=== PATIENT | male | born 1985 | race Caucasian/White ===

== ENCOUNTER 2017-02-24 06:56 | Emergency (ER) | payer SELFPAY ==
--- NOTE | 2017-02-24 07:30 | EDM.PDOC ---
ED HPI GENERAL MEDICAL PROBLEM - General Stated Complaint: HURT LEFT ANKLE Time Seen by Provider: 02/24/17 07:13 Source of Information: Reports: Patient History Limitations: Reports: No Limitations - History of Present Illness INITIAL COMMENTS - FREE TEXT/NARRATIVE: History of present illness: Patient has bad knees and tripped yesterday rolling his left ankle. He presents with left lateral ankle pain and swelling and numbness and tingling to the foot. Review of systems: As per history of present illness and below otherwise all systems reviewed and negative. Past medical history: As per history of present illness and as reviewed below otherwise noncontributory. Surgical history: As per history of present illness and as reviewed below otherwise noncontributory. Social history: No reported history of drug or alcohol abuse. Family history: As per history of present illness and as reviewed below otherwise noncontributory. Physical exam: General: Well developed, well nourished in NAD HEENT: Atraumatic, normocephalic, pupils reactive, negative for conjunctival pallor or scleral icterus, mucous membranes moist, throat clear, neck supple, nontender, trachea midline. Lungs: Clear to auscultation, breath sounds equal bilaterally, chest nontender. Heart: S1S2, regular, negative for clicks, rubs, or JVD. Abdomen: Soft, nondistended, nontender. Negative for masses or hepatosplenomegaly. Negative for costovertebral tenderness. Pelvis: Stable nontender. Genitourinary: Deferred. Rectal: Deferred. Extremities: Tender over lateral malleolus with swelling there is no open lesions, moves toes and has pedis palpable capillary refill is brisk. Sensation is intact., negative for cords or calf pain. Neurovascular unremarkable. Neuro: Awake, alert, oriented. Cranial nerves II through XII unremarkable. Cerebellum unremarkable. Motor and sensory unremarkable throughout. Exam nonfocal. Diagnostics: []X-ray left ankle Therapeutics: [] Impression: [] Plan: [] Definitive disposition and diagnosis as appropriate pending reevaluation and review of above. Left Ankle Pain Score (Numeric/FACES): 5 - Related Data Allergies Allergy/AdvReac Type Severity Reaction Status Date / Time Penicillins Allergy Hives Verified 02/24/17 07:24 Home Meds: Home Meds . [No Known Home Meds] 01/09/18 [History] Review of Systems - Review of Systems Review Of Systems: See Below (See history of present illness) ED EXAM, GENERAL - Physical Exam Exam: See Below (See history of present illness) Course - Vital Signs Last Recorded V/S: Last Vital Signs Temp 98.7 F 02/24/17 07:20 Pulse 88 02/24/17 07:20 Resp 18 02/24/17 07:20 BP 136/81 02/24/17 07:20 Pulse Ox 97 02/24/17 07:20 - Orders/Labs/Meds Orders: Active Orders 24 hr Category Date Time Status Splinting [RC] ASDIRECTED Care 02/24/17 08:20 Active Ankle Min 3V Lt [CR] Stat Exams 02/24/17 07:03 Taken Meds: Medications Discontinued Medications Generic Name Dose Route Start Last Admin Trade Name Freq PRN Reason Stop Dose Admin Ibuprofen 800 mg 02/24/17 07:32 02/24/17 07:36 Motrin PO 02/24/17 07:33 800 mg ONETIME ONE Administration Departure - Departure Time of Disposition: 08:33 Disposition: Home, Self-Care 01 Condition: Good Clinical Impression: Left ankle sprain Qualifiers: Encounter type: initial encounter Involved ligament of ankle: unspecified ligament Qualified Code(s): S93.402A - Sprain of unspecified ligament of left ankle, initial encounter - Discharge Information Referrals: PCP,None [Primary Care Provider] - Additional Instructions: The following information is given to patients seen in the emergency department who are being discharged to home. This information is to outline your options for follow-up care. We provide all patients seen in our emergency department with a follow-up referral. The need for follow-up, as well as the timing and circumstances, are variable depending upon the specifics of your emergency department visit. If you don't have a primary care physician on staff, we will provide you with a referral. We always advise you to contact your personal physician following an emergency department visit to inform them of the circumstance of the visit and for follow-up with them and/or the need for any referrals to a consulting specialist. The emergency department will also refer you to a specialist when appropriate. This referral assures that you have the opportunity for follow-up care with a specialist. All of these measure are taken in an effort to provide you with optimal care, which includes your follow-up. Under all circumstances we always encourage you to contact your private physician who remains a resource for coordinating your care. When calling for follow-up care, please make the office aware that this follow-up is from your recent emergency room visit. If for any reason you are refused follow-up, please contact the [facility] Emergency Department at and asked to speak to the emergency department charge nurse. Ice, elevate, ibuprofen for pain follow-up with primary care as needed, return if symptoms worsen or change [facility] [address] [place] [id number] - My Orders Last 24 Hours: My Active Orders 02/24/17 07:03 Ankle Min 3V Lt [CR] Stat 02/24/17 08:20 Splinting [RC] ASDIRECTED - Assessment/Plan Last 24 Hours: My Active Orders 02/24/17 07:03 Ankle Min 3V Lt [CR] Stat 02/24/17 08:20 Splinting [RC] ASDIRECTED
[2017-02-24] MEDS ORDERED: Ibuprofen 800 MG Tab PO ONE (07:32)
--- NOTE | 2017-02-24 09:49 | CR ---
EXAM DATE: 02/24/17 PATIENT'S AGE: 31 Patient: GELACIO PELAYO Facility: [place], [place] Site . Site : 1985 Study: XRay Extremity Ankle [id number]/9/2018 7:59:37 AM Ordering Physician: Doctor Quezada Final Report: Left ankle 3 VIEWS INDICATION: Injury. IMPRESSION: No visualized fracture. Alignments anatomic. Joint spaces unremarkable. Anterior and lateral swelling is present. Dictated by Rod Tolbert MD @ Feb 24 2017 8:14AM (Electronic Signature) Report Signed by Proxy. AMANDA
== END 2017-02-24 08:40 | disposition home or self-care (01) ==
LOC: MW.ED 06:56
DX: S93.402A Sprain of unspecified ligament of left ankle, initial encounter (principal); Z88.0 Allergy status to penicillin; W18.40XA Slipping, tripping and stumbling without falling, unspecified, initial encounter
CPT/HCPCS: 73610; 99283; A9270

== ENCOUNTER 2021-05-24 20:31 | Emergency (ER) | payer OTHER ==
[2021-05-24] MEDS ORDERED: Ondansetron 4 MG/2 ML SDV IVPUSH ONE (21:10)
[2021-05-24] MEDS ORDERED: LORazepam 2 MG/ML SDV IVPUSH ONE (21:10)
[2021-05-24] MEDS ORDERED: Sodium Chloride 0.9% 1,000 ML IV ONE (21:10)
[2021-05-24] MEDS ORDERED: chlordiazePOXIDE 25 MG Cap PO ONE (21:12)
[2021-05-24 22:12] LABS: BLOOD UREA NITROGEN,BUN 10 mg/dL (7.0-18.0); CHLORIDE,CL 98 mmol/L (98-107); GLUCOSE RANDOM 92 mg/dL (74-106); LIPASE 66 U/L (73-393); POTASSIUM,K 3.8 mmol/L (3.5-5.1); SODIUM,NA 139 mmol/L (136-148)
[2021-05-24] MEDS ORDERED: chlordiazePOXIDE 25 MG Cap PO STA (22:40)
== END 2021-05-24 23:19 | disposition home or self-care (01) ==
LOC: MW.ED 20:31
DX: F10.230 Alcohol dependence with withdrawal, uncomplicated (principal); Z88.0 Allergy status to penicillin; Y90.5 Blood alcohol level of 100-119 mg/100 ml
CPT/HCPCS: 36415; 80053; 80307; 81001; 82550; 83690; 83735; 84443; 85025; 96374; 96375; 99284; A9270; J2060; J2405; J7030; 99283

== ENCOUNTER 2021-05-25 04:54 | Emergency (ER) | payer OTHER | END 2021-05-25 05:50 | disposition home or self-care (01) | LOC: MW.ED 04:54 | DX: T17.298A Other foreign object in pharynx causing other injury, initial encounter (principal); S27.818A Other injury of esophagus (thoracic part), initial encounter; X58.XXXA Exposure to other specified factors, initial encounter | CPT/HCPCS: 70360; 70360-26; 71045; 71045-26; 74018; 74018-26; 99283-25; 99284 ==

== ENCOUNTER 2021-05-25 15:49 | Emergency (ER) | payer OTHER ==
[2021-05-25] MEDS ORDERED: LORazepam 1 MG Tab PO ONE (16:11)
== END 2021-05-25 18:59 | disposition home or self-care (01) ==
LOC: MW.ED 15:49
DX: K22.2 Esophageal obstruction (principal); F10.129 Alcohol abuse with intoxication, unspecified; Z88.0 Allergy status to penicillin
CPT/HCPCS: 70360; 70490; 99283; A9270; 99284